=== PATIENT | male | born 1995 | race Two or more races ===

== ENCOUNTER 2017-07-12 22:31 | Emergency (ER) | payer MEDICAID ==
[~2017-07-12] VITALS: Ht 162.6 cm; Wt 56.7 kg
[~2017-07-12 22:31] MED LIST: AMOXICILLIN500 M1 PO; AUGMENTIN 875-1 EAC1 ORAL; AUGMENTIN 875-1 EAC1 PO; BACTRIM DS TAB1 EAC1 ORAL; IBUPROFEN600 MG ORAL; NKM; NORCO 5-325 TA1 EACH ORAL
[2017-07-12 22:35] VITALS: BP 137/76
[2017-07-12] MEDS ORDERED: NKM (22:35)
[2017-07-12] MEDS ORDERED: ACETAMINOPHEN-1 EAC1 ORAL (22:50)
[2017-07-12] MEDS ORDERED: CYCLOBENZAPRINE10 MG ORAL (22:50)
[2017-07-12 23:00] VITALS: BP 137/76
--- NOTE | 2017-07-13 02:58 | Emergency Room Report ---
History of Present Illness General Chief Complaint: Pain Source: Patient Present Illness HPI 22-year-old male presents ED complaining of right leg pain. Denies trauma. Has had the pain for last 10 days on and off. Patient states pain is a 8/10, throbbing, nonradiating. Denies fevers chills. Denies leg swelling. Denies any other associated symptoms. No other aggravating relieving factors Allergies: Coded Allergies: No Known Allergies (Unverified , 11/19/12) Patient History Past Medical History: asthma Past Surgical History: none Pertinent Family History: none Social History: Denies: smoking, alcohol use, drug use Immunizations: UTD Reviewed Nursing Documentation: PMH: Agreed, PSxH: Agreed Nursing Documentation-PMH Past Medical History: No Stated History Hx Asthma: Yes Review of Systems All Other Systems: negative except mentioned in HPI Physical Exam Vital Signs Date Time Temp Pulse Resp B/P (MAP) Pulse Ox O2 Delivery O2 Flow Rate FiO2 07/12/17 22:32 97.2 96 14 137/76 99 Room Air Sp02 EP Interpretation: reviewed, normal General Appearance: no apparent distress, alert, GCS 15, non-toxic Head: normocephalic Eyes: bilateral eye normal inspection, bilateral eye PERRL ENT: normal ENT inspection Neck: normal inspection Respiratory: normal inspection Cardiovascular #1: normal inspection Gastrointestinal: normal inspection Rectal: deferred Genitourinary: no CVA tenderness Musculoskeletal: back normal, gait/station normal, normal range of motion, tender - RLE Neurologic: alert, oriented x3, responsive, motor strength/tone normal, sensory intact, speech normal Psychiatric: judgement/insight normal, memory normal, mood/affect normal, no suicidal/homicidal ideation Skin: normal color, no rash, warm/dry, well hydrated Lymphatic: normal inspection Medical Decision Making Diagnostic Impression: Primary Impression: Muscle strain ER Course Hospital Course 22-year-old male presents to ED complaining of Right leg pain no trauma Differential diagnoses include: Fracture, dislocation, sprain, contusion, bursitis Clinical course Patient placed on stretcher. After initial history, physical exam reveals a young male in no acute distress. There is some tenderness to the calf and to hamstrings RLE. no calf swelling. no bony tenderness. full ROM noted. Remainder of exam negative. Likely muscle strain. We'll treat conservatively with anti-inflammatories and muscle relaxer Diagnosis - muscle strain stable and discharged to home with prescription for Tylenol #3, Flexeril. Followup with PMD. Return to ED if symptoms recur or worsen Last Vital Signs Date Time Temp Pulse Resp B/P (MAP) Pulse Ox O2 Delivery O2 Flow Rate FiO2 07/12/17 23:00 97.2 91 16 137/76 99 Room Air Status: improved Disposition: HOME, SELF-CARE Condition: Stable Scripts Cyclobenzaprine Hcl* (FLEXERIL*) 10 Mg Tablet 10 MG ORAL TID Y for Muscle Spasm, #20 TAB Prov: JU KURTZ M.D. 07/12/17 Acetaminophen With Codeine (T#3) (TYLENOL #3 TAB*) Y Tab 1 TAB ORAL Q8H Y for For Pain, #20 TAB Prov: JU KURTZ M.D. 07/12/17 Referrals: MIKE GREY,REFERRING (PCP) Patient Instructions: Muscle Strain, [id number] JU KURTZ M.D. Jul 13, 2017 02:58
== END 2017-07-12 23:00 | disposition home or self-care (01) ==
LOC: EMR 22:51
DX: S86.811A Strain of other muscle(s) and tendon(s) at lower leg level, right leg, initial encounter (principal); X58.XXXA Exposure to other specified factors, initial encounter; Y92.89 Other specified places as the place of occurrence of the external cause; J45.909 Unspecified asthma, uncomplicated
CPT/HCPCS: 99284

== ENCOUNTER 2018-07-31 10:08 | Emergency (ER) | payer MEDICAID ==
[~2018-07-31] VITALS: Ht 162.6 cm; Wt 65.8 kg
[~2018-07-31 10:08] MED LIST changes: +ACETAMINOPHEN-1 EAC1 ORAL; +CYCLOBENZAPRINE10 MG ORAL
[2018-07-31 10:27] VITALS: BP 124/77
[2018-07-31] MEDS ORDERED: IBUPROFEN600 MG ORAL (10:35)
[2018-07-31] MEDS ORDERED: AMOXICILLIN500 MG ORAL (10:35)
--- NOTE | 2018-07-31 11:28 | Emergency Room Report ---
History of Present Illness General Chief Complaint: Sore Throat Source: Patient Present Illness HPI 23-year-old male presents ED for evaluation. Complaining of sore throat 1 day. Denies cough. Pain is throbbing, 7 out of 10, nonradiating. Denies fever. Notes chills. Denies sick contacts recent travel. No other aggravating relieving factors. Denies any other associated symptoms Allergies: Coded Allergies: No Known Allergies (Unverified , 11/19/12) Patient History Past Medical History: asthma Past Surgical History: none Pertinent Family History: none Social History: Denies: smoking, alcohol use, drug use Immunizations: UTD Reviewed Nursing Documentation: PMH: Agreed; PSxH: Agreed Nursing Documentation-PMH Past Medical History: No History, Except For Hx Cardiac Problems: No Hx Hypertension: No Hx Pacemaker: No Hx Asthma: Yes Hx COPD: No Hx Diabetes: No Hx Cancer: No Hx Gastrointestinal Problems: No Hx Dialysis: No History Of Psychiatric Problem: No Hx Neurological Problems: No Hx Cerebrovascular Accident: No Hx Seizures: No Review of Systems All Other Systems: negative except mentioned in HPI Physical Exam Vital Signs Date Time Temp Pulse Resp B/P (MAP) Pulse Ox O2 Delivery O2 Flow Rate FiO2 07/31/18 10:12 98.1 85 14 124/77 95 Room Air Sp02 EP Interpretation: reviewed, normal General Appearance: no apparent distress, alert, GCS 15, non-toxic Head: normocephalic Eyes: bilateral eye normal inspection, bilateral eye PERRL ENT: hearing grossly normal, no angioedema, normal voice, TMs + canals normal, uvula midline, pharyngeal erythema Neck: normal inspection Respiratory: chest non-tender, lungs clear, normal breath sounds, speaking full sentences Cardiovascular #1: normal inspection Gastrointestinal: normal inspection Rectal: deferred Genitourinary: no CVA tenderness Musculoskeletal: normal inspection Neurologic: alert, oriented x3, responsive, motor strength/tone normal, sensory intact, speech normal Psychiatric: normal inspection Skin: normal inspection Lymphatic: other - submandibular Medical Decision Making Diagnostic Impression: Primary Impression: Pharyngitis Qualified Codes: J02.9 - Acute pharyngitis, unspecified ER Course Hospital Course 23 yo M presents with sore throat, chills Differential diagnoses include: URI, pharyngitis, otitis media Clinical course Patient placed on stretcher. After initial history, physical exam reveals a male in no acute distress. Bilateral TM unremarkable. There is pharyngeal erythema w/o tonsillar exudates. Noted submandibular lymphadenopathy. Clinical findings consistent with pharyngitis. Discussed findings with patient. We'll discharge with analgesics, antibiotics. Safe for discharge close outpatient follow-up Diagnosis - pharyngitis Stable and discharged home with prescriptions for Motrin, amoxicillin. Instructed to followup with PMD. return to ED if symptoms recur or worsen Last Vital Signs Date Time Temp Pulse Resp B/P (MAP) Pulse Ox O2 Delivery O2 Flow Rate FiO2 07/31/18 10:37 98.1 72 16 124/77 95 Room Air Status: improved Disposition: HOME, SELF-CARE Condition: Stable Scripts Amoxicillin* (AMOXIL*) 500 Mg Capsule 500 MG ORAL THREE TIMES A DAY, #21 CAP Prov: Dwight Mohan MD 07/31/18 Ibuprofen* (MOTRIN*) 600 Mg Tablet 600 MG ORAL Q8H PRN for For Pain, #30 TAB 0 Refills Prov: Dwight Mohan MD 07/31/18 Referrals: [facility],REFERR[facility] (PCP) Departure Forms: Return to Work Return to Work Date: Aug 01, 2018 Work Restrictions: None Patient Instructions: Pharyngitis, [id number] Dwight Mohan MD Jul 31, 2018 11:28
== END 2018-07-31 12:12 | disposition home or self-care (01) ==
LOC: EMR 10:35
DX: J02.9 Acute pharyngitis, unspecified (principal); J45.909 Unspecified asthma, uncomplicated
CPT/HCPCS: 99283

== ENCOUNTER 2018-10-23 09:06 | Emergency (ER) | payer MEDICAID ==
[~2018-10-23] VITALS: Ht 162.6 cm; Wt 68.0 kg
[~2018-10-23 09:06] MED LIST changes: +AMOXICILLIN500 MG ORAL
--- NOTE | 2018-10-23 09:18 | NUR ---
ED Nurse Note: PT WALKED IN TO ER TODAY FROM HOME. AOX4. PT C/O NONPRODUCTIVE COUGH AND SORE THROAT, PAIN 7/10 X YESTERDAY AM. LUNG SOUNDS CLEAR IN ALL LOBES. NO SIGNS OF RESPIRATORY DISTRESS OR RETRACTIONS NOTED. PT AFERBILE AND RR16 WITH O2 SAT 98% ON RA.
[2018-10-23 09:20] VITALS: BP 124/84
[2018-10-23] MEDS ORDERED: IBUPROFEN600 MG ORAL (09:32)
[2018-10-23] MEDS ORDERED: AMOXICILLIN500 MG ORAL (09:32)
--- NOTE | 2018-10-23 09:34 | Emergency Room Report ---
History of Present Illness General Chief Complaint: Upper Respiratory Illness Source: Patient Present Illness HPI Patient presents with complaints of sore throat mild congestion Reports that he was working yesterday in the rain feels that he got sick at that time Pain worse with swallowing Questionable subjective low-grade fever at home Denies any posterior neck pain denies any vomiting or diarrhea Denies any focal weakness Pain is 4 out of 10 denies any change with voice Allergies: Coded Allergies: No Known Allergies (Unverified , 11/19/12) Patient History Past Medical History: see triage record Pertinent Family History: none Reviewed Nursing Documentation: PMH: Agreed; PSxH: Agreed Nursing Documentation-PMH Past Medical History: No History, Except For Hx Cardiac Problems: No Hx Hypertension: No Hx Pacemaker: No Hx Asthma: Yes Hx COPD: No Hx Diabetes: No Hx Cancer: No Hx Gastrointestinal Problems: No Hx Dialysis: No Hx Neurological Problems: No Hx Cerebrovascular Accident: No Hx Seizures: No Review of Systems All Other Systems: negative except mentioned in HPI Physical Exam Vital Signs Date Time Temp Pulse Resp B/P (MAP) Pulse Ox O2 Delivery O2 Flow Rate FiO2 10/23/18 09:11 98.2 74 18 121/86 97 Room Air Sp02 EP Interpretation: reviewed, normal General Appearance: well appearing, no apparent distress Head: normocephalic, atraumatic Eyes: bilateral eye PERRL, bilateral eye EOMI ENT: hearing grossly normal, normal voice, TMs + canals normal, uvula midline, pharyngeal erythema Neck: full range of motion, supple, no meningismus, no bony tend Respiratory: lungs clear, normal breath sounds, no rhonchi, no respiratory distress, no retraction, no accessory muscle use Cardiovascular #1: normal peripheral pulses, regular rate, rhythm, no edema, no gallop, no JVD, no murmur Gastrointestinal: normal bowel sounds, non tender, soft, no mass, no organomegaly, non-distended, no guarding, no hernia, no pulsatile mass, no rebound Musculoskeletal: normal inspection Neurologic: oriented x3, responsive, v belt coverer III-XII nml as tested, motor strength/ tone normal, sensory intact Psychiatric: mood/affect normal Skin: normal color, no rash, warm/dry, palpation normal Lymphatic: normal inspection, no adenopathy Medical Decision Making Diagnostic Impression: Primary Impression: pharyngitis ER Course Exam and history is consistent with pharyngitis Other differentials such as retropharyngeal abscess, peritonsillar abscess considered also flu and meningitis Patient otherwise does not appear septic or toxic appears well and is stable for close outpatient attempt Last Vital Signs Date Time Temp Pulse Resp B/P (MAP) Pulse Ox O2 Delivery O2 Flow Rate FiO2 10/23/18 09:20 98.4 72 16 124/84 98 Room Air Status: unchanged Disposition: HOME, SELF-CARE Condition: Stable Scripts Ibuprofen* (MOTRIN*) 600 Mg Tablet 600 MG ORAL Q8H PRN for For Pain, #20 TAB 0 Refills Prov: Yoana Ness DO 10/23/18 Amoxicillin* (AMOXIL*) 500 Mg Capsule 500 MG ORAL THREE TIMES A DAY, #21 CAP Prov: Yoana Ness DO 10/23/18 Departure Forms: Return to Work Return to Work in (Days): 2 Return to Work Date: Oct 25, 2018 Patient Instructions: Pharyngitis, [id number] Additional Instructions: Patient is provided with the discharge instructions notified to follow up with primary doctor in the next 2-3 days otherwise return to the er with any worsening symptoms. Please note that this report is being documented using [employer] technology. This can lead to erroneous entry secondary to incorrect interpretation by the dictating instrument. Yoana Ness DO Oct 23, 2018 09:34
[2018-10-23 09:51] VITALS: BP 120/80
--- NOTE | 2018-10-23 09:52 | NUR ---
ED Nurse Note: PT LAYING PEACEFULLY IN BED IN NAD. AO4. PRESCRIPTION AND DISCHARGE PAPERWORK EXPLAINED TO PT. PT VERBALIZES UNDERSTANDING AND ALL QUESTIONS WERE ANSWERED. PRESCRIPTION AND DISCHARGE PAPERWORK GIVEN TO PT AND ID WRISTBAND REMOVED. PT WALKED OUT OF ER WITH STEADY GAIT AND ALL BELONGINGS.
== END 2018-10-23 09:55 | disposition home or self-care (01) ==
LOC: EMR 09:21
DX: J02.9 Acute pharyngitis, unspecified (principal)
CPT/HCPCS: 99282